=== PATIENT | female | born 1975 | race Native Hawaiian/Other Pacific Islander ===

== ENCOUNTER → 2018-05-17 | Outpatient (CLI) | payer BC | LOC: COL.RAD 11:01 | DX: D25.9 Leiomyoma of uterus, unspecified (principal); N83.201 Unspecified ovarian cyst, right side ==

== ENCOUNTER 2018-06-11 16:18 | Inpatient (IN) | payer BC ==
[~2018-06-11] VITALS: Ht 167.6 cm; Wt 80.0 kg
[2018-06-30] MEDS ORDERED: IRON 27 MG PO (09:29)
[2018-07-01] VITALS (10 sets, daily range): BP systolic 98–134; BP diastolic 52–76; PULSE 63–80; TEMP 97.7–98.4
[2018-07-01 06:33] LABS: BASO % 0.5 % (0.0-2.0); EOS # 0.1 (0.0-0.7); EOS % 1.3 % (0-4.0); GRAN % 51.5 % (42.2-75.2); HEMATOCRIT 39.9 % (37.0-47.0); HEMOGLOBIN 12.4 g/dl (12.5-16.0); LYMPH # 1.4 (1.2-3.4); LYMPH % 35.9 % (20.0-51.0); MEAN CELL VOLUME 79 fl (80.0-100.0); MEAN CORPUSCULAR HEMOGLOBIN 25 pg (27.0-31.0); MEAN CORPUSCULAR HGB CONC 31 g/dl (33.0-37.0); MEAN PLATELET VOLUME 8.9 fl (7.4-10.4); MONO # 0.4 (0.1-0.6); MONO % 10.5 % (1.7-9.3); PLATELET COUNT 308 K/mm3 (130-400); RED BLOOD COUNT 5.06 M/mm3 (4.10-5.30); REDCELL DISTRIBUTION WIDTH-CV 27.7 % (11.5-14.5)
--- NOTE | 2018-07-01 13:14 | NUR ---
1300 PATIENT SITS UP IN BED EATING LUNCH. BURTON OUT PER DR SMITH ORDER. PATIENT UP AMBULATE IN HALLS.
--- NOTE | 2018-07-01 18:52 | NUR ---
1852- DR SMITH AT BEDSIDE ASSESSING PT, NO NEW ORDERS AT THIS TIME.
[2018-07-01] MEDS ORDERED: IBU600 MG PO (19:02)
[2018-07-01] MEDS ORDERED: PERCOCET 325 MG1 TA2 PO (19:03)
[2018-07-02 00:10] VITALS: BP 82/40; PULSE 52; TEMP 98.6
[2018-07-02 03:55] VITALS: BP 86/43; PULSE 57; TEMP 98.3
[2018-07-02 08:23] VITALS: BP 112/43; PULSE 56
--- NOTE | 2018-07-02 09:05 | NUR ---
Initial visit; Patient and her daughter thanked [facility] for offering God's blessings and a continued healing.
--- NOTE | 2018-07-02 09:55 | NUR ---
PAtient education reviewed for discharge. Patient states understanding, denies questions or concerns. INT removed from left hand. Patient tolerated well. Pattient changed and escorted off unit by staff.
== END 2018-07-02 09:55 | disposition home or self-care (01) | DRG 743 ==
LOC: SURG 06-30 07:30 → INPTSU 07-01 05:27 → SURG 07-01 07:30 → OB 07-01 10:59
PROVIDERS: ADMIT Obstetrics & Gynecology
PROC: 0UT9FZZ Resection of Uterus, Via Natural or Artificial Opening With Percutaneous Endoscopic Assistance (ICD-10-PCS; principal; 2018-07-01 07:30)
PROC: 0UT0FZZ Resection of Right Ovary, Via Natural or Artificial Opening With Percutaneous Endoscopic Assistance (ICD-10-PCS; 2018-07-01 07:30)
PROC: 0UT7FZZ Resection of Bilateral Fallopian Tubes, Via Natural or Artificial Opening With Percutaneous Endoscopic Assistance (ICD-10-PCS; 2018-07-01 07:30)
PROC: 0TJB8ZZ Inspection of Bladder, Via Natural or Artificial Opening Endoscopic (ICD-10-PCS; 2018-07-01 07:30)
DX: D25.1 Intramural leiomyoma of uterus (principal); D25.0 Submucous leiomyoma of uterus; N80.1 Endometriosis of ovary; N93.8 Other specified abnormal uterine and vaginal bleeding; N92.0 Excessive and frequent menstruation with regular cycle; D50.0 Iron deficiency anemia secondary to blood loss (chronic); F17.210 Nicotine dependence, cigarettes, uncomplicated
CPT/HCPCS: OP; A4314; J0690; J1100; J1885; J2405; J2704; J3010; J7050; J7120; P9016